=== PATIENT | female | born 1970 | race Caucasian/White ===

== ENCOUNTER → 2019-04-27 13:58 | Outpatient (CLI) | payer OTHER, SELFPAY ==
--- NOTE | ~2019-04-27 | MM_ITS ---
EXAMINATION: MM screening [facility] BI w [place] HISTORY: Screening mammogram TECHNIQUE: Craniocaudal and mediolateral oblique 3-D tomosynthesis images were obtained and synthetic 2-D images were generated. CAD analysis was submitted and interpreted. COMPARISON: Comparison to multiple prior studies sequentially, with oldest reviewed study dated 10/01. BREAST PARENCHYMAL COMPOSITION: The breasts are almost entirely fatty. FINDINGS: There is no evidence of suspicious mass, calcification, or architectural distortion to sugg est malignancy in either breast. There has been no suspicious interval change. IMPRESSION: 1. No mammographic evidence of malignancy. 2. Recommend routine screening mammography in one year. BI-RADS Category 1: Negative Reviewed, dictated and finalized at location A.
== END ==
PROVIDERS: PCP Family Medicine; Visit Provider Nurse Practitioner
DX: Z12.31 Encounter for screening mammogram for malignant neoplasm of breast (principal)
CPT/HCPCS: 77063; 77067

== ENCOUNTER → 2020-06-12 15:49 | Outpatient (CLI) | payer OTHER, SELFPAY ==
--- NOTE | ~2020-06-12 | MM_ITS ---
EXAMINATION: MM screening [facility] [place] HISTORY: Screening TECHNIQUE: Craniocaudal and mediolateral oblique 3-D tomosynthesis images were obtained and synthetic 2-D images were generated. CAD analysis was submitted and interpreted. COMPARISON: Comparison to multiple prior studies sequentially, with oldest reviewed study dated 10/01. BREAST PARENCHYMAL COMPOSITION: Breast composed of scattered areas of fibroglandular density FINDINGS: There is no evidence of suspicious mass, calcification, or architectural distortion to sugg est malignancy in either breast. There has been no suspicious interval change. IMPRESSION: 1. No mammographic evidence of malignancy. 2. Recommend routine screening mammography in one year. BI-RADS Category 1: Negative Reviewed, dictated and finalized at location A.
== END ==
PROVIDERS: Visit Provider Nurse Practitioner
DX: Z12.31 Encounter for screening mammogram for malignant neoplasm of breast (principal)
CPT/HCPCS: 77063; 77067

== ENCOUNTER → 2021-06-17 11:20 | Outpatient (CLI) | payer OTHER, SELFPAY ==
--- NOTE | ~2021-06-17 | MM_ITS ---
EXAMINATION: MM screening [facility] [place] HISTORY: Screening TECHNIQUE: Craniocaudal and mediolateral oblique 3-D tomosynthesis images were obtained and synthetic 2-D images were generated. CAD analysis was submitted and interpreted. COMPARISON: Comparison to multiple prior studies sequentially, with oldest reviewed study dated 12/08. BREAST PARENCHYMAL COMPOSITION: There are scattered areas of fibroglandular density. FINDINGS: There is no evidence of suspicious mass, calcification, or architectural distortion to sugg est malignancy in either breast. There has been no suspicious interval change. IMPRESSION: 1. No mammographic evidence of malignancy. 2. Recommend routine screening mammography in one year. BI-RADS Category 1: Negative Reviewed, dictated and finalized at location A.
== END ==
PROVIDERS: PCP Family Medicine; Visit Provider Nurse Practitioner
DX: Z12.31 Encounter for screening mammogram for malignant neoplasm of breast (principal)
CPT/HCPCS: 77063; 77067

== ENCOUNTER → 2022-02-11 09:14 | Outpatient (CLI) | payer OTHER, SELFPAY ==
--- NOTE | ~2022-02-11 | MMUS_ITS ---
EXAMINATION: MM diagnostic [facility] BI w [place], US breast BI limited HISTORY: Bilateral nipple pain TECHNIQUE: Craniocaudal, mediolateral, and mediolateral oblique 3-D tomosynthesis images of the breas ts were performed and synthetic 2-D images were generated. CAD analysis was submitted and interpreted . High resolution limited bilateral breast ultrasound was performed. COMPARISON: 06/17/2021, 06/12/2020, 04/27/2019 BREAST PARENCHYMAL COMPOSITION: There are scattered areas of fibroglandular density. FINDINGS: MAMMOGRAPHIC FINDINGS: No suspicious mass, calcification, or architectural distortion are identified in either breast to sug gest malignancy. There has been no suspicious interval change. No mammographic correlate is identifie d for the patient's reported bilateral nipple pain. ULTRASOUND: Tardus subareolar ultrasound was performed of both breasts. No sonographic correlate is identified fo r the patient's reported nipple pain. IMPRESSION: 1. No specific mammographic or sonographic correlate is identified for the patient's reported nipple pain. Further evaluation at this time should be based on clinical assessment. Continued follow-up phy sical examination is recommended. 2. Recommend routine screening mammography in one year. BI-RADS Category 1: Negative Reviewed, dictated and finalized at location A. LY SALES STAFF IMPRESSION: 1. No specific mammographic or sonographic correlate is identified for the meggan ent's reported nipple pain. Further evaluation at this time should be based on clinical assessment. Continued follow-up physical examination is recommended. 2. Recommend routine screening mammography in one year. BI-RADS Category 1: Negative
== END ==
PROVIDERS: PCP Family Medicine; Visit Provider Nurse Practitioner
DX: N64.4 Mastodynia (principal)
CPT/HCPCS: 76642; 77062; 77066; G0279

== ENCOUNTER 2023-06-20 14:09 | Outpatient (CLI) | payer OTHER, SELFPAY ==
--- NOTE | ~2023-06-20 | MM_ITS ---
EXAMINATION: MM screening [facility] [place] HISTORY: Screening mammogram TECHNIQUE: Craniocaudal and mediolateral oblique 3-D tomosynthesis images were obtained and synthetic 2-D images were generated. CAD analysis was submitted and interpreted. COMPARISON: 02/11/2022 diagnostic bilateral mammogram and limited bilateral breast ultrasound examinati on 06/17/2021 bilateral screening mammogram BREAST PARENCHYMAL COMPOSITION: The breasts are almost entirely fatty. FINDINGS: There is no evidence of suspicious mass, calcification, or architectural distortion to sugg est malignancy in either breast. There has been no suspicious interval change. IMPRESSION: 1. No mammographic evidence of malignancy. 2. Recommend routine screening mammography in one year. BI-RADS Category 1: Negative Reviewed, dictated and finalized at location A.
== END 2023-06-20 14:10 ==
LOC: MICIMG 14:11
PROVIDERS: PCP Family Medicine; Visit Provider Nurse Practitioner
DX: Z12.31 Encounter for screening mammogram for malignant neoplasm of breast (principal)
CPT/HCPCS: 77063; 77067

== ENCOUNTER 2024-06-29 11:55 | Outpatient (CLI) | payer OTHER, SELFPAY ==
--- NOTE | ~2024-06-29 | MM_ITS ---
EXAMINATION: MM screening [facility] w [facility] HISTORY: Screening TECHNIQUE: Craniocaudal and mediolateral oblique 3-D tomosynthesis images were obtained and synthetic 2-D images were generated. CAD analysis was submitted and interpreted. COMPARISON: Comparison to multiple prior studies sequentially, with oldest reviewed study dated 03/03. BREAST PARENCHYMAL COMPOSITION: Not Dense: The breasts are almost entirely fatty. FINDINGS: There is no evidence of suspicious mass, calcification, or architectural distortion to sugg est malignancy in either breast. There has been no suspicious interval change. IMPRESSION: 1. No mammographic evidence of malignancy. 2. Recommend routine screening mammography in one year. BI-RADS Category 1: Negative Reviewed, dictated and finalized at location B.
--- OUTSIDE RECORDS SUMMARY | 2024-06-29 11:58 | XMS_ITS | Encounter Summary ---
Author Organization [facility] Facility Care Team Providers Care Chicken And Fish Cleaner Name Role Phone Unknown, Notinfile Primary Care Provider Unavail able Curtis Rhodes MD Primary Care Provider [phone] Solo Barrett MD Primary Care Provider [phone] Nancy Lipscomb MD Unavailable [phone] Encounter Details Date Type Department Care Team (Latest Contact Info) Description 02/22/2017 Orders Only [facility] CLINCONV ProviderSaeid MD [address] [place] [id number] Social History Tobacco Use Types Packs/Day Years Used Date Smoking Tobacco: Never Assessed Comments Unknown Sex and Gender Information Value Date Recorded Sex Assigned at Not on file Legal Sex Female 3:01 AM PLANNING OFFICIAL Gender Identity Not on file Sexual Orientation Not on file documented as of this encounter Plan of Treatment Not on file documented as of this encounter Procedures Procedure Name Priority Date/Time Associated Diagnosis Comments CARDIOLOGY REPORT 02/22/2017 12: 00 AM PLANNING OFFICIAL documented in this encounter Results * CARDIOLOGY REPORT (02/22/2017 12:00 AM PLANNING OFFICIAL) Anatomical Region Laterality Modality Other Narrative 02/22/2017 12:00 AM PLANNING OFFICIAL Ordered by an unspecified provider. Historical Provider [facility] SCOTT MAR[facility] Final Result documented in this encounter Visit Diagnoses Not on filedocumented in this encounter Additional Health Concerns Infection Onset Date Last Indicated Resolved Time COVID: Suspected 03/01/2023 03/01/2023 03/01/2023 10:28 AM PLANNING OFFICIAL COVID: Suspected 03/01/2023 03/01/2023 03/01/2023 8:00 PM PLANNING OFFICIAL RSV, droplet 03/01/2023 03/01/2023 03/08/2023 3:05 AM PLANNING OFFICIAL COVID: Suspected 06/12/2024 06/12/2024 06/12/2024 10:14 AM CDT documented as of this encounter Care Teams Chicken And Fish Cleaner Relationship Specialty Start Date End Date Unknown, Notinfile PCP - General 04/18/17 04/28/17 Curtis Rhodes MD [address] [place] [address] PCP - General 04/29/17 07/26/18 Solo Barrett MD [address] [place] [address] PCP - General Family Medicine 07/27/18 Nancy Lipscomb MD [address] [place] [address] Critical Care Unit Manager Interventional Cardiology 09/20/18 documented as of this encounter
--- OUTSIDE RECORDS SUMMARY | 2024-06-29 11:58 | XMS_ITS | Encounter Summary ---
Author Organization [facility] Address [address] [place] [address] Care Team Providers Care Insurance Verify Rep Name Role Phone Solo Barrett MD Primary Care Provider [phone] Encounter Details Date Type Department Care Team (Late st Contact Info) Description 01/16/2008 Outpatient Historical [facility] Charisma Villalobos MD [address] [id number] Other Screening Mammogram Social History Tobacco Use Types Packs/Day Years Used Date Smoking Tobacco: Never Assessed Comments Unknown Sex and Gender Information Value Date Recorded Sex Assigned at Not on file Legal Sex Female 5:40 AM TECHNOLOGY CONSULTANT Gender Identity Not on file Sexual Orientation Not on file documented as of this encounter Plan of Treatment Not on file documented as of this encounter Procedures Procedure Name Priority Date/Time Associated Diagnosis Comments MAMMO SCREENING BILAT Routine 01/16/2008 3:08 PM TECHNOLOGY CONSULTANT documented in this encounter Results * MAMMO SCREENING BILAT (01/16/2008 3:08 PM TECHNOLOGY CONSULTANT) Anatomical Region Laterality Modality Breast Bilateral Other 01/16/2008 3:08 PM TECHNOLOGY CONSULTANT Narrative 01/19/2008 7:08 PM TECHNOLOGY CONSULTANT [facility] [address] [place], [place] [address] Admit Date: 01/16/2008 MERCEDES BRO Sex: F Admit Prov: CHARISMA GAN Date: 1970 Primary Care Prov: PCP, UNKNOWN CMRN: [id number] [id number] Ordering Prov: DOCTORCHRISTIANO O Accession Number: [id number] Interpretation BILATERAL SCREENING MAMMOGRAMS, 01/16/2008 Reason For Examination: Routine screening study. Findings: The parenchyma is moderately dense bilaterally. There is no mass, malignant calcification, lymphadenopathy or other sign of malignancy. Summary: No mammographic evidence of malignancy. BI-RADS Category: 1, negative. Assessment BIRADS: 1-Negative Recommendation: Normal interval follow-up Dictated by: SHAHID RIOJAS Electronically signed by: SHAHID RIOJAS 01/19/2008 19:08 Transcribed: 01/19/2008 14:26 DKT Procedure Note Shahid Riojas MD - 01/19/[address] [address] Admit Date: 01/16/2008 MERCEDES BRO Sex: F Admit Prov: [id number] CHARISMA ALFARO Date:1970 Primary Care Prov: PCP, UNKNOWN CMRN: [id number] [id number] [facility] Ordering Prov: CHRISTIANO MARIE Interpretation BILATERAL SCREENING MAMMOGRAMS, 01/16/2008 Reason For Examination: Routine screening study. Findings: The parenchyma is moderately dense bilaterally. There is nomass, malignant calcification, lymphadenopathy or other sign ofmalignancy. Summary: No mammographic evidence of malignancy. BI-RADS Category: 1, negative. Assessment BIRADS: 1-Negative Recommendation: Normal interval follow-up Dictated by: SHAHID RIOJAS Electronically signed by: SHAHID RIOJAS 01/19/2008 19:08 Transcribed: 01/19/2008 14:26 DKT us History Conversion MAMMO ORDERABLES Final Result documented in this encounter Visit Diagnoses Diagnosis Other screening mammogram documented in this encounter Care Teams Insurance Verify Rep Relationship Specialty Start Date End Date Solo Barrett MD PCP - General Family Practice 03/17/12 documented as of this encounter
--- OUTSIDE RECORDS SUMMARY | 2024-06-29 11:58 | XMS_ITS | Referral Summary ---
Author Organization [facility] Address [address] [place] [address] Care Team Providers Care Veneer Joiner Name Role Phone Solo Barrett MD Primary Care Provider Nancy Lipscomb MD Unavailable Encounters Date Type Department Care Team Description 06/20/2024 8:00 AM CDT Office Visit [facility] Family Medicine at [address] [place] [phone] Lizbeth Fay NP Class 3 severe obesity due to excess calories with serious comorbidity and body mass index (BMI) of 40.0 to 44.9 in adult (Primary Dx) 06/12/2024 9:45 AM CDT Office Visit [facility] at [address] [place] [address] Betty Perez PA Cough, unspecified type (Primary Dx); Breast cancer screening by mammogram 05/22/2024 Telephone [facility] at [address] [place] [address] Solo Barrett MD 05/17/2024 10:15 AM CDT Office Visit [facility] at [address] [phone] Betty Perez PA Encounter for weight management (Primary Dx); Morbid obesity with BMI of 40.0-44.9, adult (HCC) 05/16/2024 Results Follow-Up [facility] at [address] [phone] Betty Perez PA Lipid panel 05/16/2024 6:05 AM CDT Lab [facility] [address] [place] [phone] Blood tests for routine general physical examination 05/15/2024 Orders Only [facility] at [address] [phone] Solo Barrett MD Blood tests for routine general physical examination (Primary Dx) 05/10/2024 Results Follow-Up [facility] at [address] [phone] Betty Perez PA CBC with auto differential, Comprehensive metabolic panel, TSH, Additional followed-up results: 2 05/10/2024 6:15 AM CDT Lab [facility] [address] [place] [phone] Routine general medical examination at a health care facility; Screening for metabolic disorder 05/07/2024 Telephone [facility] at [address] [phone] Solo Barrett MD Additional Services Or Orders 05/07/2024 9:00 AM CDT Office Visit [facility] [address] [place] [phone] Lana Olea NP BMI 40.0-44.9, adult (HCC) (Primary Dx); JILLIAN (obstructive sleep apnea); Other hyperlipidemia; Essential hypertension from Last 3 Months Allergies No known active allergies Medications pantoprazole DR (PROTONIX) 40 mg EC tablet Take 1 tablet (40 mg total) by mouth 2 (two) times a day 3 06/04/2018 Active multivit with minerals/lutein (MULTIVITAMIN 50 PLUS ORAL) daily Active potassium chloride ER (KLOR-CON) 10 mEq CR tabletIndication s:Essential hypertension,Hyp okalemia Take 1 tablet/capsu le (10 mEq total) by mouth daily 90 tablet/capsul e 3 08/02/2023 08/02/19 25 Active rosuvastatin (CRESTOR) 10 mg tabletIndication s:Dyslipidemia TAKE 1 TABLET BY MOUTH EVERY DAY 90 tablet 1 10/06/2023 Active spironolactone-h ydroCHLOROthiazi de (ALDACTAZIDE) 25-25 mg per tabletIndication s:Essential hypertension,Dys lipidemia TAKE 1 AND 1/2 TABLETS BY MOUTH DAILY 135 tablet 04/30/2024 Active COQ10, UBIQUINOL, ORAL Take 1 capsule by mouth daily Active tirzepatide, weight loss, (Zepbound) 2.5 mg/0.5 mL pen injectorIndicati ons:Encounter for weight management,Morbi d obesity with BMI of 40.0-44.9, adult ([facility]) Inject 0.5 mL (2.5 mg total) under the skin every 7 days 2 mL 1 05/17/2024 Active guaiFENesin-code ine (GUAITUSS AC) liquid 100-10 mg/5 mLIndications:Co ugh, unspecified type Take 5-10 mL by mouth every 4 (four) hours as needed for cough 120 mL 06/12/2024 07/13/19 25 Active Active Problems Problem Noted Date Diagnosed Date Other hyperlipidemia 05/07/2024 Nonsmoker 04/06/2023 Class 3 severe obesity due t o excess calories with serious comorbidity and body mass index (BMI) of 40.0 to 44.9 in adult 04/28/2022 Assessment & Plan (06/20/2024 8:24 AM CDT): Not at goal, improving Obesity managed with Semaglutide 2.5 mg. No nausea or vomiting. Effective weight loss. No hunger, reduced portion sizes. Insurance may require dose increase for coverage. - Continue Semaglutide 2.5 mg as tolerated. - Increase fiber intake for constipation. - Consider dose increase if weight loss plateaus and insurance requires. - Encourage dietary modifications to increase protein intake to over 100 grams per day. - Recommend resistance training using home equipment and online resources. - Schedule follow-up in 3 months for annual visit and medication review. JILLIAN (obstructive sleep apnea) 04/28/2022 Psychophysiological insomnia 04/28/2022 Gastroesophageal reflux disease with esophagitis 03/01/2017 Resolved Problems Problem Noted Date Diagnosed Date Resolved Date Upper respiratory tract infection 03/01/2023 05/17/2024 Assessment & Plan (03/01/2023 10:23 AM INTERNAL MEDICINE DOCTOR): Likely viral PCR and throat culture pending Vital signs stable, no respiratory distress, nontoxic appearance, lungs CTAB on exam, 97% on RA Supportive care, rest, clear sugar-free fluids (water), steam inhalation/humidifier Warm salt water gargles OTC medications (Flonase, Nasal saline, Zyrtec/Claritin, Tylenol, Mucinex/Delsym per package instructions) BMI 39.0-39.9,adult 10/06/2022 05/18/19 25 Hypersomnia 04/28/2022 05/17/2024 Morbid (severe) obesity due to excess calories 04/08/2022 09/28/2022 Left wrist pain 01/20/2022 09/29/2022 Acute pain of right shoulder 12/25/2018 09/23/2020 Immunizations Immunization Administration Dates Next Due Influenza, Quadrivalent, Alyssa l Culture-based MDCK, Preservative Free, Antibiotic Free, Intramuscular 11/27/2022,10/30/2021,10/24/2019 Influenza, Quadrivalent, Spl it, Preservative Free, Intramuscular 11/23/2020 Influenza, Trivalent, Preser vative Free, Intramuscular 12/02/2023 Influenza, Unspecified 11/07/2021,11/07/2020 Pfizer SARS-CoV-2 Monovalent Vaccination (12+ Yrs) PURPLE 12/14/2023,04/29/2020,04/07/2020 Tdap 05/23/2018 ZOSTER Recombinant 03/28/2022,01/15/2022 Social History Tobacco Use Types Packs/Day Years Used Date Smoking Tobacco: Never Smokeless Tobacco: Never Tobacco Cessation:Counseling Given: Not Answered Alcohol Use Standard Drinks/Week Comments Yes 0 (1 standard drink = 0.6 oz pur e alcohol) AUDIT-C Answer Date Recorded Q1: How often do you have a drink containing alc ohol? 2-4 times a month 06/20/2024 Q2: How many drinks containi ng alcohol do you have on a typical day when you are drinking? 1 or 2 06/20/2024 Q3: How often do you have si x or more drinks on one occasion? 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 Not on file Not on file Last Filed Vital Signs Vital Sign Reading Time Taken Comments Blood Pressure 122/82 06/20/2024 7:56 AM CDT Pulse 72 06/20/2024 7:56 AM CDT Temperature 36.5 C (97.7 F) 06/20/2024 7:56 AM CDT Respiratory Rate 18 06/20/2024 7:56 AM CDT Oxygen Saturation 99% 06/20/2024 7:56 AM CDT Inhaled Oxygen Concentration - - Weight 103.5 kg (228 lb 1.6 oz) 06/20/2024 7:56 AM CDT Height 157.5 cm (5' 2 ) 06/20/2024 7:56 AM CDT Body Mass Index 41.72 06/20/2024 7:56 AM CDT Plan of Treatment Not on file Procedures Procedure Name Priority Date/Time Associated Diagnosis Comments POC INFLUENZA A/B, COVID-19 ANTIGEN Routine 06/12/2024 10:13 AM CDT Cough, unspecified type LIPID PANEL Routine 05/16/2024 6:11 AM CDT Blood tests for routine general physical examination EGFR Routine 05/10/2024 6:21 AM CDT Routine general medical examination at a health care facility DIFFERENTIAL AUTO Routine 05/10/2024 6:2 1 AM CDT Routine general medical examination at a health care facility TSH Routine 05/10/2024 6:21 AM CDT Screening for metabolic disorder COMPREHENSIVE METABOLIC PANEL Routine 05/10/2024 6:21 AM CDT Routine general medical examination at a health care facility CBC WITH AUTO DIFFERENTIAL Routine 05/10/2024 6:21 AM CDT Routine general medical examination at a health care facility SCREENING MAMMOGRAM BILATERAL W ALEXIS Schedule Routine, Read Routine (OP Routine) 06/20/2023 COLONOSCOPY Routine 12/18/2021 from Last 3 Months or Most Recently Relevant to Health Maintenance Results * POC Influenza A/B, COVID-19 antigen (06/12/2024 10:13 AM CDT) Influenza A Ag, POC Negative Negative [facility] Influenza B Ag, POC Negative Negative [facility] COVID-19 Ag POC Presumptive Negative Presumptive Negative, Invalid [facility] Nasal 06/12/2024 10:1 3 AM CDT Betty Gutierrez POINT OF CARE TEST ORDER KYLE Final Result [facility] [address] [facility] [address] [place], [place] [address] * Lipid panel (05/16/2024 6:11 AM CDT) Cholesterol 159 30 - 199 mg/dL Comment: Interpretive Data Ages < or = 19 years Acceptable: <170 mg/dL Borderline high: 170-199 mg/dL High: >or= 200 mg/dL Ages > or = 20 years Desirable: <200 mg/dL Borderline high: 200-239 mg/dL High: >or= 240 mg/dL Literature References: 1. Expert Panel on Integrated Guidelines for Cardiovascular Health and Risk Reduction in Children and Adolescents. Pediatrics 2011;128:S213 2. NCEP Expert Panel. Circulation 2004;110:227 Current Interpretive Data was last revised on 2017. Testing performed by: [address] [address] Triglycerides 60 <=149 mg/dL [facility] Comment: Interpretive Data Ages < or = 9 years Acceptable: <75 mg/dL Borderline high: 75-99 mg/dL High: >or= 100 mg/dL Ages 10 to 20 years Acceptable: <90 mg/dL Borderline high: 90-129 mg/dL High: >or= 130 mg/dL Ages > or = 20 years Desirable: <150 mg/dL Borderline high: 150-199 mg/dL High: 200-499 mg/dL Very high: >or= 499 mg/dL Literature References: 1. Expert Panel on Integrated Guidelines for Cardiovascular Health and Risk Reduction in Children and Adolescents. Pediatrics 2011;128:S213 2. NCEP Expert Panel. Circulation 2004;110:227 Current Interpretive Data was last revised on 2017. Testing performed by: [address] [address] HDL 62 >=40 mg/dL [facility] Comment: Interpretive Data Ages < or = 19 years Acceptable: >45 mg/dL Borderline low: 40-45 mg/dL Low: <40 mg/dL Ages > or = 20 years Desirable: >or= 60 mg/dL Low: <40 mg/dL Literature References: 1. Expert Panel on Integrated Guidelines for Cardiovascular Health and Risk Reduction in Children and Adolescents. Pediatrics 2011;128:S213 2. NCEP Expert Panel. Circulation 2004;110:227 Current Interpretive Data was last revised on 2017. Testing performed by: [address] [address] LDL, calculated 85 <=129 mg/dL [facility] Comment: Interpretive Data Ages < or = 19 years Acceptable: <110 mg/dL Borderline high: 110-129 mg/dL High: >or= 130 mg/dL Ages > or = 20 years Optimal: <100 mg/dL Near optimal: 100-129 mg/dL Borderline high: 130-159 mg/dL High: >160 mg/dL Calculated using the Isidro LDL-C estimating equation. This equation was implemented on 2023. Prior to this date LDL-C was estimated using the Friedewald equation. Literature References: 1. Expert Panel on Integrated Guidelines for Cardiovascular Health and Risk Reduction in Children and Adolescents. Pediatrics 2011;128:S213 2. NCEP Expert Panel. Circulation 2004;110:227 3. Dwaine Tadeo et al. NATHALIA Cardiol. 2020 June 07;5(5):540-548. doi: 10.1001/jamacardio.2020.0013 Current Interpretive Data was last revised on 2023. Testing performed by: [address] [address] Non-HDL Cholesterol 97 mg/dL [facility] PHAM Comment: Interpretive Data Ages < or = 19 years Acceptable: <120 mg/dL Borderline high: 120-144 mg/dL High: >145 mg/dL Ages > or = 20 years When triglycerides are >200 mg/dL, Non-HDL cholesterol is a secondary target of therapy with treatment goals that are 30 mg/dL greater than the LDL cholesterol target. Literature References: 1. Expert Panel on Integrated Guidelines for Cardiovascular Health and Risk Reduction in Children and Adolescents. Pediatrics 2011;128:S213 2. NCEP Expert Panel. Circulation 2004;110:227 Current Interpretive Data was last revised on 2017. Testing performed by: [address] [address] Chol/HDL ratio 3 CHEY Comment:Testing performed by : [address] [address] Blood 05/16/2024 6:11 AM CDT 05/16/2024 7:27 AM CDT us Solo Barrett MD LAB BLOOD ORDERABLES Final Re sult [facility] [address] [facility] Department [place] [address] * eGFR (05/10/2024 6:21 AM CDT) eGFR >90 >=60 mL/min/1. 73 m2 Comment: Interpretive Data Reference Interval Normal >/= 90 mL/min/1.73m2 Mildly decreased* 60 - 89 mL/min/1.73m2 Mildly to moderately decreased 45 - 59 mL/min/1.73m2 Moderately to severely decreased 30 - 44 mL/min/1.73m2 Severely decreased 15 - 29 mL/min/1.73m2 Kidney Failure < 15 mL/min/1.73m2 *Relative to young adult level Estimated glomerular filtration rate is determined by the 2020 CKD-EPI equation recommended by the National Kidney Foundation (A Unifying Approach to GFR Estimation: Recommendations of the NKF-ASK Task Force on Reassessing the Inclusion of Race in Diagnosing Kidney Disease, JASN 2020). The CKD-EPI equation should not be used for patients with unstable renal function and has not been validated in children and those over 70. Current interpretive data was last reviewed 2020. Testing performed by: [address] [address] Blood 05/10/2024 6:21 AM CDT 05/10/2024 7:05 AM CDT us Solo Barrett MD LAB BLOOD ORDERABLES Final Re sult [facility] [address] [facility] Department [place] [address] * (ABNORMAL) Differential, auto (05/10/2024 6:21 AM CDT) Neutrophil abs 3.96 1.50 - 6.50 K/cumm Comment:Testing performed by : [address] [address] Imm gran abs 0.02 0.00 - 0.10 K/cumm CHEY Comment:Testing performed by : [address] [address] Lymphocyte abs 3.64(H) 0.80 - 3.30 K/cumm CHEY Comment:Testing performed by : [address] [address] Monocyte abs 0.62 0.20 - 0.80 K/cumm CHEY Comment:Testing performed by : [address] [place] [address] Eosinophil abs 0.36 0.00 - 0.50 K/cumm [facility] Comment:Testing performed by : [address] [address] Basophil abs 0.12(H) 0.00 - 0.10 K/cumm CHEY Comment:Testing performed by : [address] [address] Neutrophil pct 45.5 % [facility] Comment: Interpretive Data Percent cell count reference ranges are not reported, since discordance with absolute values may lead to misinterpretation of CBC data. Current Interpretive Data was last revised on 2017. Testing performed by: [address] [address] Imm gran pct 0.2 % [facility] Comment: Interpretive Data Percent cell count reference ranges are not reported, since discordance with absolute values may lead to misinterpretation of CBC data. Current Interpretive Data was last revised on 2017. Testing performed by: [address] [address] Lymphocyte pct 41.7 % [facility] Comment: Interpretive Data Percent cell count reference ranges are not reported, since discordance with absolute values may lead to misinterpretation of CBC data. Current Interpretive Data was last revised on 2017. Testing performed by: [address] [address] Monocyte pct 7.1 % [facility] Comment: Interpretive Data Percent cell count reference ranges are not reported, since discordance with absolute values may lead to misinterpretation of CBC data. Current Interpretive Data was last revised on 2017. Testing performed by: [address] [address] Eosinophil pct 4.1 % [facility] Comment: Interpretive Data Percent cell count reference ranges are not reported, since discordance with absolute values may lead to misinterpretation of CBC data. Current Interpretive Data was last revised on 2017. Testing performed by: [address] [address] Basophil pct 1.4 % [facility] Comment: Interpretive Data Percent cell count reference ranges are not reported, since discordance with absolute values may lead to misinterpretation of CBC data. Current Interpretive Data was last revised on 2017. Testing performed by: [address] [address] Blood 05/10/2024 6:21 AM CDT 05/10/2024 7:05 AM CDT Solo Barrett MD LAB BLOOD ORDERABLES Final Re sult [facility] [address] [facility] Department [place] [address] * CBC with auto differential (05/10/2024 6:21 AM CDT) WBC 8.72 3.80 - 9.90 K/cumm Comment:Testing performed by : [address] [address] Hgb 14.5 11.9 - 15.5 g/dL CHEY Comment:Testing performed by : [address] [address] Hct 43.2 35.6 - 45.5 % CHEY Comment:Testing performed by : [address] [address] Plt 351 150 - 400 K/cumm CHEY Comment:Testing performed by : [address] [address] MPV 10.7 9.1 - 12.3 fL [facility] Comment:Testing performed by : [address] [address] RBC 4.98 3.90 - 5.20 M/cumm CHEY Comment:Testing performed by : [address] [address] MCV 86.7 81.3 - 96.4 fL CHEY Comment:Testing performed by : [address] [address] MCH 29.1 27.1 - 33.3 pg [facility] Comment:Testing performed by : [address] [address] MCHC 33.6 32.3 - 35.7 g/dL [facility] PHAM Comment:Testing performed by : [address], [address] RDW CV 13.4 11.1 - 14.9 % [facility] PHAM Comment:Testing performed by : [address], [address] RDW SD 42.3 35.7 - 48.1 fL [facility] PHAM Comment:Testing performed by : [address] [address] NRBC abs 0.00 0.00 - 0.01 K/cumm CHEY Comment:Testing performed by : [address], [address] Blood 05/10/2024 6:21 AM CDT 05/10/2024 7:05 AM CDT us Solo Barrett MD LAB BLOOD ORDERABLES Final Re sult Performing Organization Address City/[facility] Co de Phone Number JAK[address] [employer] [address] * TSH (05/10/2024 6:21 AM CDT) Thyroid Stimulating Hormone 2.75 0.30 - 4.20 mcIUnit/mL Comment:Testing performed by : [address] [address] Blood 05/10/2024 6:21 AM CDT 05/10/2024 7:05 AM CDT Solo Barrett MD LAB BLOOD ORDERABLES Final Re sult JAK[address] [place] [address] * Comprehensive metabolic panel (05/10/2024 6:21 AM CDT) Sodium 140 135 - 145 mmol/L Comment:Testing performed by : [address] [address] Potassium, pl 3.3 3.3 - 4.9 mmol/L CHEY Comment:Testing performed by : [address] [address] Chloride 100 97 - 110 mmol/L [facility] Comment:Testing performed by : [address], [place]., [address] CO2 27 22 - 32 mmol/L [facility] Comment:Testing performed by : [address], [place]., [address] Anion gap 13 2 - 15 mmol/L [facility] Comment:Testing performed by : [address] [address] BUN 19 6 - 25 mg/dL [facility] Comment:Testing performed by : [address], [place]., [address] Creatinine 0.60 0.60 - 1.10 mg/dL [facility] Comment:Testing performed by : [address] [address] Glucose 95 70 - 199 mg/dL [facility] Comment: Interpretive Data Fasting glucose >/= 126 mg/dl is diagnostic for diabetes. Fasting is defined as no caloric intake for at least 8 hours. Fasting glucose between 100 mg/dl to 125 mg/dl is diagnostic of prediabetes. In a patient with classic symptoms of hyperglycemia or hyperglycemic crisis, a random glucose >/= 200 mg/dl is diagnostic for diabetes. In the absence of unequivocal hyperglycemia, results should be confirmed by repeat testing. The classification and Diagnosis of Diabetes Diabetes Care 202; 46: S19-S40. Current interpretive data was last revised 2022. Testing performed by: [address] [address] Calcium 9.8 8.5 - 10.3 mg/dL [facility] Comment:Testing performed by : [address] [address] Bilirubin, total 0.4 0.1 - 1.2 mg/dL [facility] Comment:Testing performed by : [address], [place]., [address] Protein, pl 7.3 6.5 - 8.5 g/dL [facility] Comment:Testing performed by : [facility], [address] [place] [address]., [address] Albumin 4.0 3.5 - 5.0 g/dL [facility] Comment:Testing performed by : [address] [address] Alk phos 101 40 - 130 Units/L [facility] Comment:Testing performed by : [address], [address] ALT 25 7 - 45 Units/L [facility] Comment:Testing performed by : [address] [address] AST 19 10 - 45 Units/L [facility] Comment:Testing performed by : [address] [address] Blood 05/10/2024 6:21 AM CDT 05/10/2024 7:05 AM CDT Solo Barrett MD LAB BLOOD ORDERABLES Final Re sult [facility] Department [place] [address] * Screening Mammogram Bilateral W Alexis (06/20/2023) Anatomical Region Laterality Modality Breast Bilateral Mammography Historical Provider IMG MAMMO PROCEDURES Junie l Result * Colonoscopy (12/18/2021) Anatomical Region Laterality Modality Other Historical Provider ENDOSCOPY PROCEDURES Junie l Result from Last 3 Months or Most Recently Relevant to Health Maintenance Insurance [facility] Care Teams Veneer Joiner Relationship Specialty Start Date End Date Solo Barrett MD PCP - General Family Medicine 07/27/18 Nancy Lipscomb MD Speech Therapist Technician Interventional Cardiology 09/20/18
--- OUTSIDE RECORDS SUMMARY | 2024-06-29 11:58 | XMS_ITS | Encounter Summary ---
Author Organization [facility] Address [address] [place] [address] Care Team Providers Care Press Officer Name Role Phone Solo Barrett MD Primary Care Provider [phone] Nancy Lipscomb MD Unavailable Encounter Details Date Type Department Care Team (Late st Contact Info) Description 05/16/2024 Results Follow-Up [facility] Family Medicine at [address] [phone] Betty Perez, [address] [address] Lipid panel Social History Tobacco Use Types Packs/Day Years Used Date Smoking Tobacco: Never Smokeless Tobacco: Never Alcohol Use Standard Drinks/Week Comments Yes 0 (1 standard drink = 0.6 oz pur e alcohol) AUDIT-C Answer Date Recorded Q1: How often do you have a drink containing alc ohol? 2-4 times a month 09/23/2020 Q2: How many drinks containi ng alcohol do you have on a typical day when you are drinking? 1 or 2 09/23/2020 Q3: How often do you have si x or more drinks on one occasion? 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
--- OUTSIDE RECORDS SUMMARY | 2024-06-29 11:58 | XMS_ITS | Encounter Summary ---
Author Organization [facility] Healthcare Address [address] [place] [address] Care Team Providers Care Meat Apprentice Name Role Phone Solo Barrett MD Primary Care Provider [phone] Nancy Lipscomb MD Unavailable Encounter Details Date Type Department Care Team (Late st Contact Info) Description 05/10/2024 Results Follow-Up [facility] Family Medicine at [address] [address] Betty Perez, [address] [address] CBC with auto differential, Comprehensive metabolic panel, TSH, Additional followed-up results: 2 Social History Tobacco Use Types Packs/Day Years [...] points, staff should administer the PHQ-9) 0 09/29/2022 Comments Unknown Sex and Gender Information Value Date Recorded Sex Assigned at Not on file 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 Yes-Action Needed documented in this encounter Plan of Treatment Not on file documented as of this encounter Visit Diagnoses Not on filedocumented in this encounter Additional Health Concerns Infection Onset Date Last Indicated Resolved Time COVID: Suspected 06/12/2024 06/12/2024 06/12/2024 10:14 AM CDT documented as of this encounter Care Teams Meat Apprentice Relationship Specialty Start Date End Date Solo Barrett MD PCP - General Family Medicine 07/27/18 Nancy Lipscomb MD Ordained Minister Interventional Cardiology 09/20/18 documented as of this encounter
--- OUTSIDE RECORDS SUMMARY | 2024-06-29 11:58 | XMS_ITS | Encounter Summary ---
Author Organization [facility] Facility Care Team Providers Care Die Cutter Name Role Phone Unknown, Notinfile Primary Care Provider Unavail able Curtis Rhodes MD Primary Care Provider + [phone] Solo Barrett MD Primary Care Provider [phone] Nancy Lipscomb MD Unavailable [phone] Encounter Details Date Type Department Care Team (Latest Contact Info) Description 07/19/2015 Orders Only [facility] CLINCONV ProviderSaeid MD [address] [place] [address] Social History Tobacco Use Types Packs/Day Years Used Date Smoking Tobacco: Never Assessed Comments Unknown Sex and Gender Information Value Date Recorded Sex Assigned at Not on file Legal Sex Female 3:01 AM CRUSHER AND BLENDER 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 Historical Provider MD Final Res ult documented in this encounter Visit Diagnoses Not on filedocumented in this encounter Additional Health Concerns Infection Onset Date Last Indicated Resolved Time COVID: Suspected 03/01/2023 03/01/2023 03/01/2023 10:28 AM CRUSHER AND BLENDER OPERATOR COVID: Suspected 03/01/2023 03/01/2023 03/01/2023 8:00 PM CRUSHER AND BLENDER OPERATOR RSV, droplet 03/01/2023 03/01/2023 03/08/2023 3:05 AM CRUSHER AND BLENDER OPERATOR COVID: Suspected 06/12/2024 06/12/2024 06/12/2024 10:14 AM CDT documented as of this encounter Care Teams Die Cutter Relationship Specialty Start Date End Date Unknown, Notinfile PCP - General 04/18/17 04/28/17 Curtis Rhodes MD [address] [place] [address] PCP - General 04/29/17 07/26/18 Solo Barrett MD [address] [place] [address] PCP - General Family Medicine 07/27/18 Nancy Lipscomb MD [address] [place] [address] Authorization Specialist Interventional Cardiology 09/20/18 documented as of this encounter
--- OUTSIDE RECORDS SUMMARY | 2024-06-29 11:58 | XMS_ITS | Clinical Summary ---
Author Organization [facility] Care Team Providers Care Health Communications Specialist Name Role Phone Unavailable Primary Care Provider Unavailabl e Social History Tobacco Use Types Packs/Day Years Used Date Smoking Tobacco: Never Assessed Comments Unknown Sex and Gender Information Value Date Recorded Sex Assigned at Not on file Legal Sex Female 8:23 AM CDT Gender Identity Not on file Sexual Orientation Not on file Plan of Treatment Health Maintenance Due Date Last Done Comments Hepatitis C Virus (HCV) Screening 1970 Hepatitis B Immunization (1 of 3 - 19+ 3-dose series) 01/01/1991 Colonoscopy 01/01/2017 Colorectal Cancer Screening 01/01/2017 Cologuard 01/01/2022 Immunochemical Fecal Occult Blood 01/01/2022 Pneumococcal Immunization (5 0+ years) (1 of 1 - PCV) 01/01/2022 Zoster Immunization (1 of 2) 01/01/2022 SARS-COV-2 Immunization (3 - 2023- season) 2023 04/29/2020, 04/07/2020 Influenza Immunization (Seas on Ended) 2024 10/24/2019 Respiratory Syncytial Virus (RSV) Immunization (Adult) (1 - 1-dose 75+ series) 01/01/2047 DTaP/Tdap/Td Immunization Discontinued 05/23/2018 TdaP Immunization Completed 05/23/2018 Human Papillomavirus (HPV) Immunization Aged Out No longer eligible based on patient's age to complete this topic Meningococcal Immunization (ACWY) Aged Out No longer eligible based on patient's age to complete this topic Rotavirus Immunization Aged Out No lo nger eligible based on patient's age to complete this topic
--- OUTSIDE RECORDS SUMMARY | 2024-06-29 11:58 | XMS_ITS | Encounter Summary ---
Author Organization [facility] Facility Care Team Providers Care Bag End Sewer Name Role Phone Unknown, Notinfile Primary Care Provider Unavail able Crutis Rhodes MD Primary Care Provider [phone] Solo Barrett MD Primary Care Provider Nancy Lipscomb MD Unavailable [phone] Encounter Details Date Type Department Care Team (Latest Contact Info) Description 03/07/2017 Orders Only [facility] CLINCONV ProviderSaeid MD [address] [place] [address] Social History Tobacco Use Types Packs/Day Years Used Date Smoking Tobacco: Never Assessed Comments Unknown Sex and Gender Information Value Date Recorded Sex Assigned at Not on file Legal Sex Female 3:01 AM ORNAMENT STITCHER Gender Identity Not on file Sexual Orientation Not on file documented as of this encounter Plan of Treatment Not on file documented as of this encounter Procedures Procedure Name Priority Date/Time Associated Diagnosis Comments CARDIOLOGY REPORT 03/07/2017 12: 00 AM ORNAMENT STITCHER documented in this encounter Results * CARDIOLOGY REPORT (03/07/2017 12:00 AM ORNAMENT STITCHER) Anatomical Region Laterality Modality Other Narrative 03/07/2017 12:00 AM ORNAMENT STITCHER Ordered by an unspecified provider. Historical Provider [facility] Final Result documented in this encounter Visit Diagnoses Not on filedocumented in this encounter Additional Health Concerns Infection Onset Date Last Indicated Resolved Time COVID: Suspected 03/01/2023 03/01/2023 03/01/2023 10:28 AM ORNAMENT STITCHER COVID: Suspected 03/01/2023 03/01/2023 03/01/2023 8:00 PM ORNAMENT STITCHER RSV, droplet 03/01/2023 03/01/2023 03/08/2023 3:05 AM ORNAMENT STITCHER COVID: Suspected 06/12/2024 06/12/2024 06/12/2024 10:14 AM CDT documented as of this encounter Care Teams Bag End Sewer Relationship Specialty Start Date End Date Unknown, Notinfile PCP - General 04/18/17 04/28/17 Curtis Rhodes MD [address] [place] [address] PCP - General 04/29/17 07/26/18 Solo Barrett MD [address] [place] [address] PCP - General Family Medicine 07/27/18 Nancy Lipscomb MD [address] [place] [address] Mechanical Integrity Engineer Interventional Cardiology 09/20/18 documented as of this encounter
--- OUTSIDE RECORDS SUMMARY | 2024-06-29 11:58 | XMS_ITS | Clinical Summary ---
Author Organization [facility] Address [address] [place] [address] Care Team Providers Care Putty Remover Name Role Phone Solo Barrett MD Primary Care Provider [phone] Nancy Lipscomb MD Unavailable Allergies No known active allergies Medications pantoprazole [...] d obesity with BMI of 40.0-44.9, adult (HCC) Inject 0.5 mL (2.5 mg total) under [...] 05/17/2024 Assessment & Plan (03/01/2023 10:23 AM FLATBED DRIVER): Likely viral PCR and throat culture pending [...] Acute pain of right shoulder 12/25/2018 09/23/2020 Encounters Date Type Department Care Team Description 06/20/2024 8:00 AM CDT Office Visit [facility] Family Medicine at [address] [address] Lizbeth Fay NP Class 3 severe obesity due to excess calories with serious comorbidity and body mass index (BMI) of 40.0 to 44.9 in adult (Primary Dx) 06/12/2024 9:45 AM CDT Office Visit [facility] Family Medicine at [address] [address] Betty Perez PA Cough, unspecified type (Primary Dx); Breast cancer screening by mammogram 05/22/2024 Telephone [facility] Family Medicine at [address] [address] Solo Barrett MD 05/17/2024 10:15 AM CDT Office Visit [facility] Family Medicine at [address] [address] Betty Perez PA Encounter for weight management (Primary Dx); Morbid obesity with BMI of 40.0-44.9, adult (HCC) 05/16/2024 6:05 AM CDT Lab [facility] [address] [place] [address] Blood tests for routine general physical examination 05/16/2024 Results Follow-Up [facility] Family Medicine at [address] [address] Betty Perez PA Lipid panel 05/15/2024 Orders Only [facility] Family Medicine at [address] [place] [phone] Solo Barrett MD Blood tests for routine general physical examination (Primary Dx) 05/10/2024 6:15 AM CDT Lab [facility] [address] [place] [address] Routine general medical examination at a health care facility; Screening for metabolic disorder 05/10/2024 Results Follow-Up [facility] Family Medicine at [address] [place] [address] Betty Perez PA CBC with auto differential, Comprehensive metabolic panel, TSH, Additional followed-up results: 2 05/07/2024 9:00 AM CDT Office Visit [facility] Cardiology [address] [place] [address] [address] [place] [address] Lana Olea, VICTORIANO BMI 40.0-44.9, adult (HCC) (Primary Dx); JILLIAN (obstructive sleep apnea); Other hyperlipidemia; Essential hypertension 05/07/2024 Telephone [facility] Family Medicine at [address] [place] [address] Solo Barrett MD Additional Services Or Orders from Last 3 Months Immunizations Immunization Administration Dates Next Due Influenza, Quadrivalent, Alyssa l Culture-based MDCK, Preservative Free, Antibiotic Free, Intramuscular 11/27/2022,10/30/2021,10/24/2019 Influenza, Quadrivalent, Spl it, Preservative Free, Intramuscular 11/23/2020 Influenza, Trivalent, Preser vative Free, Intramuscular 12/02/2023 Influenza, Unspecified 11/07/2021,11/07/2020 Pfizer SARS-CoV-2 Monovalent Vaccination (12+ Yrs) PURPLE 12/14/2023,04/29/2020,04/07/2020 Tdap 05/23/2018 ZOSTER Recombinant 03/28/2022,01/15/2022 Surgical History Surgery Date Site/Laterality Comments SECTION x1 OVARIAN CYST REMOVAL BILATERAL OOPHORECTOMY ANTERIOR CRUCIATE LIGAMENT REPAIR Right Medical History Medical History Date Comments Abnormal EKG Precordial chest pain Hypertension Hyperlipidemia GERD (gastroesophageal reflux disease) 2007 Family History Medical History Relation Name Comments Cancer Father Ashish Colon cancer Father Ashish Diabetes Maternal Grandfather Fran Heart disease Mother Linda Hypertension Mother Linad Relation Name Status Comments Father Ashish Maternal Grandfather Fran Mother Linda Social History Tobacco Use Types Packs/Day Years [...] on file Legal Sex Female 3:01 AM FLATBED DRIVER Gender Identity Not on file Sexual Orientation Not on file 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 Not on file Not on file Not on file Obstetrics History Last Filed Vital Signs Vital Sign Reading [...] 06/20/2024 7:56 AM CDT Plan of Treatment Health Maintenance Due Date Last Done Comments Cervical Cancer Screening 1970 Hepatitis C Screening 1970 Hepatitis B Screening 01/01/1990 Regular Well Visit/Exam 18-64 07/28/2019 07/27/2018 Breast Cancer Screening-Mammogram 06/19/2024 06/20/2023, 02/11/2022, 04/03/2012 Colon Cancer Screening-Colonoscopy 12/18/2024 12/18/2021 Depression Screening 06/12/2025 06/12/2024, 05/17/2024, 09/29/2022, Additional history exists DTaP/Tdap/Td Vaccine (2 - Td or Tdap) 05/23/2028 05/23/2018 Zoster Vaccine Completed 03/28/2022, 01/15/2022 Influenza Vaccine Completed 12/02/2023, , 11/07/2021, Additional history exists Covid-19 Vaccine Completed 12/14/2023, 07/2023, 12/18/2022, Additional history exists Pneumococcal vaccine <65 Aged Out No longer eligible based on patient's age to complete this topic Procedures Procedure Name Priority Date/Time Associated Diagnosis [...] CDT) Influenza A Ag, POC Negative Negative [facility] Influenza B Ag, POC Negative Negative [facility] COVID-19 Ag POC Presumptive Negative Presumptive Negative, Invalid [facility] [address] Nasal 06/12/2024 10:1 3 AM CDT us Betty Gutierrez POINT OF CARE TEST ORDER KYLE Final Result [facility] [address] [address] * Lipid panel (05/16/2024 6:11 AM CDT) [...] last revised on 2017. Testing performed by: [facility], [address] [place] [address]., [address] Triglycerides 60 <=149 mg/dL [facility] PHAM Comment: Interpretive Data Ages [...] last revised on 2017. Testing performed by: [address] [address] HDL 62 >=40 mg/dL [facility] Comment: Interpretive [...] last revised on 2017. Testing performed by: [address] [address] LDL, calculated 85 <=129 mg/dL [facility] Comment: Interpretive Data Ages < or = 19 years Acceptable: <110 mg/dL Borderline high: 110-129 mg/dL High: >or= 130 mg/dL Ages > or = 20 years Optimal: <100 mg/dL Near optimal: 100-129 mg/dL Borderline high: 130-159 mg/dL High: >160 mg/dL Calculated using the Dwaine LDL-C estimating equation. This equation was implemented on 2023. Prior to this date LDL-C was estimated using the Friedewald equation. Literature References: 1. Expert Panel on Integrated Guidelines for Cardiovascular Health and Risk Reduction in Children and Adolescents. Pediatrics 2011;128:S213 2. NCEP Expert Panel. Circulation 2004;110:227 3. Dwaine iSmmons al. NATHALIA Cardiol. 2020 June 07;5(5):540-548. doi: 10.1001/jamacardio.2020.0013 Current Interpretive Data was last revised on 2023. Testing performed by: [address] [address] Non-HDL Cholesterol 97 mg/dL [facility] Comment: Interpretive Data Ages < [...] last revised on 2017. Testing performed by: [facility], [address] [place] [address]., [address] Chol/HDL ratio 3 [facility] Comment:Testing performed by : [facility], [address] [place] [address]., [address] Blood 05/16/2024 6:11 AM CDT 05/16/2024 7:27 AM CDT Solo Barrett MD LAB BLOOD ORDERABLES Final Re sult [facility] [address] [facility] [place] [address] * eGFR (05/10/2024 6:21 AM [...] of Race in Diagnosing Kidney Disease, JASN 202). The CKD-EPI equation should not be used for patients with unstable renal function and has not been validated in children and those over 70. Current interpretive data was last reviewed 2020. Testing performed by: [address] [address] Blood 05/10/2024 6:21 AM CDT 05/10/2024 7:05 AM CDT us Solo Barrett MD LAB BLOOD ORDERABLES Final Re sult [facility] [address] [facility] [place] [address] * (ABNORMAL) Differential, auto (05/10/2024 6:21 AM CDT) Neutrophil abs 3.96 1.50 - 6.50 K/cumm Comment:Testing performed by : [address] [address] Imm gran abs 0.02 0.00 - 0.10 K/cumm CHEY Comment:Testing performed by : [address] [address] Lymphocyte abs 3.64(H) 0.80 - 3.30 K/cumm CHEY Comment:Testing performed by : [address] [address] Monocyte abs 0.62 0.20 - 0.80 K/cumm CHEY Comment:Testing performed by : [address] [address] Eosinophil abs 0.36 0.00 - 0.50 K/cumm CHEY Comment:Testing performed by : [address] [address] Basophil abs 0.12(H) 0.00 - 0.10 K/cumm [facility] Comment:Testing performed by : [address] [address] Neutrophil pct 45.5 % [facility] Comment: Interpretive Data Percent cell count reference ranges are not reported, since discordance with absolute values may lead to misinterpretation of CBC data. Current Interpretive Data was last revised on 2017. Testing performed by: [address] [address] Imm gran pct 0.2 % [facility] Comment: Interpretive Data Percent cell count reference ranges are not reported, since discordance with absolute values may lead to misinterpretation of CBC data. Current Interpretive Data was last revised on 2017. Testing performed by: [address] [address] Lymphocyte pct 41.7 % [facility] Comment: Interpretive Data Percent cell count reference ranges are not reported, since discordance with absolute values may lead to misinterpretation of CBC data. Current Interpretive Data was last revised on 2017. Testing performed by: [address] [address] Monocyte pct 7.1 % [facility] Comment: Interpretive Data Percent cell count reference ranges are not reported, since discordance with absolute values may lead to misinterpretation of CBC data. Current Interpretive Data was last revised on 2017. Testing performed by: [address] [address] Eosinophil pct 4.1 % [facility] Comment: Interpretive Data Percent cell count reference ranges are not reported, since discordance with absolute values may lead to misinterpretation of CBC data. Current Interpretive Data was last revised on 2017. Testing performed by: [address] [address] Basophil pct 1.4 % [facility] Comment: Interpretive Data Percent cell count reference ranges are not reported, since discordance with absolute values may lead to misinterpretation of CBC data. Current Interpretive Data was last revised on 2017. Testing performed by: [address] [address] Blood 05/10/2024 6:21 AM CDT 05/10/2024 7:05 AM CDT us Solo Barrett MD LAB BLOOD ORDERABLES Final Re sult [facility] [address] [facility] Department of Laboratories [place], [place] [id number] * CBC with auto differential (05/10/2024 6:21 AM CDT) [facility] WBC 8.72 3.80 - 9.90 K/cumm Comment:Testing performed by : [address] [address] Hgb 14.5 11.9 - 15.5 g/dL [facility] Comment:Testing performed by : [address] [address] Hct 43.2 35.6 - 45.5 % [facility] Comment:Testing performed by : [address] [address] Plt 351 150 - 400 K/cumm CHE[facility] Comment:Testing performed by : [address] [address] MPV 10.7 9.1 - 12.3 fL [facility] Comment:Testing performed by : [address], [address] RBC 4.98 3.90 - 5.20 M/cumm CHE[facility] Comment:Testing performed by : [address] [address] MCV 86.7 81.3 - 96.4 fL [facility] Comment:Testing performed by : [address], [address] MCH 29.1 27.1 - 33.3 pg [facility] Comment:Testing performed by : [address], [address] MCHC 33.6 32.3 - 35.7 g/dL [facility] Comment:Testing performed by : [address], [address] RDW CV 13.4 11.1 - 14.9 % [facility] Comment:Testing performed by : [address], [address] RDW SD 42.3 35.7 - 48.1 fL [facility] Comment:Testing performed by : [address], [address] NRBC abs 0.00 0.00 - 0.01 K/cumm CHE[facility] Comment:Testing performed by : [address] [address] Blood 05/10/2024 6:21 AM CDT 05/10/2024 7:05 AM CDT Solo Barrett MD LAB BLOOD ORDERABLES Final Re sult Performing Organization Address [facility] Co de Phone Number [address] [address] * TSH (05/10/2024 6:21 AM CDT) Thyroid Stimulating Hormone 2.75 0.30 - 4.20 mcIUnit/mL Comment:Testing performed by : [address] [address] Blood 05/10/2024 6:21 AM CDT 05/10/2024 7:05 AM CDT Solo Barrett MD LAB BLOOD ORDERABLES Final Re sult Performing Organization Address [facility] Co de Phone Number [address] [address] * Comprehensive metabolic panel (05/10/2024 6:21 AM CDT) Sodium 140 135 - 145 mmol/L Comment:Testing performed by : [address] [address] Potassium, pl 3.3 3.3 - 4.9 mmol/L [facility] Comment:Testing performed by : [address] [address] Chloride 100 97 - 110 mmol/L [facility] Comment:Testing performed by : [address] [address] CO2 27 22 - 32 mmol/L [facility] Comment:Testing performed by : [address] [address] Anion gap 13 2 - 15 mmol/L [facility] Comment:Testing performed by : [address] [address] BUN 19 6 - 25 mg/dL [facility] Comment:Testing performed by : [address] [address] Creatinine 0.60 0.60 - 1.10 mg/dL [facility] Comment:Testing performed by : [address] [address] Glucose 95 70 - 199 mg/dL [facility] Comment: Interpretive Data Fasting glucose >/= 126 [...] classification and Diagnosis of Diabetes Diabetes Care 2021; 46: S19-S40. Current interpretive data was last revised 2022. Testing performed by: [address] [address] Calcium 9.8 8.5 - 10.3 mg/dL [facility] Comment:Testing performed by : [address] [address] Bilirubin, total 0.4 0.1 - 1.2 mg/dL [facility] Comment:Testing performed by : [address] [address] Protein, pl 7.3 6.5 - 8.5 g/dL [facility] Comment:Testing performed by : [address] [address] Albumin 4.0 3.5 - 5.0 g/dL [facility] Comment:Testing performed by : [address] [address] Alk phos 101 40 - 130 Units/L [facility] Comment:Testing performed by : [address] [address] ALT 25 7 - 45 Units/L [facility] Comment:Testing performed by : [address] [address] AST 19 10 - 45 Units/L [facility] Comment:Testing performed by : [facility], [address] [place] [address]., [address] Blood 05/10/2024 6:21 AM CDT 05/10/2024 7:05 AM CDT Solo Barrett MD LAB BLOOD ORDERABLES Final Re sult [facility] [address] [facility] [place] [address] * Screening Mammogram Bilateral W Alexis (06/20/2023) Anatomical Region Laterality Modality Breast Bilateral Mammography Historical Provider IMG MAMMO PROCEDURES Junie l Result * Colonoscopy (12/18/2021) Anatomical Region Laterality Modality Other Historical Provider ENDOSCOPY PROCEDURES Junie l Result from Last 3 Months or Most Recently Relevant to Health Maintenance [facility] [employer] H[employer] Care Teams Putty Remover Relationship Specialty Start Date End Date Solo Barrett MD PCP - General Family Medicine 07/27/18 Nancy Lipscomb MD Congregational Care Pastor Interventional Cardiology 09/20/18
--- OUTSIDE RECORDS SUMMARY | 2024-06-29 11:58 | XMS_ITS | Clinical Summary ---
Author Organization [facility] Address [address] [place] [address] Phone Care Team Providers Care Clinical Trial Associate Name Role Phone Solo Barrett MD Primary Care Provider [phone] Family History Medical History Relation Name Comments Breast Cancer Sister age 40's Ovarian Cancer Neg Hx Relation Name Status Comments Sister Social History Tobacco Use Types Packs/Day Years Used Date Smoking Tobacco: Never Assessed Comments Unknown Sex and Gender Information Value Date Recorded Sex Assigned at Not on file Legal Sex Female 5:40 AM TANDEM OPERATOR Gender Identity Not on file Sexual Orientation Not on file Plan of Treatment Health Maintenance Due Date Last Done Comments HEPATITIS B VACCINES (1 of 3 - 19+ 3-dose series) 01/01/1991 HPV/Cotest (21-29) 01/01/1993 CERVICAL CANCER SCREENING 01/01/2002 HPV/Cotest (30-65) 01/01/2002 PAP SMEAR 01/01/2002 BREAST CANCER SCREENING 04/03/2013 04/03/2012, 01/15 COLORECTAL SCREENING 01/01/2017 Colorectal Cancer Screening 01/01/2017 FIT-DNA Q 3 years 01/01/2017 FIT/FOBT Q 1 year 01/01/2017 Flex Sig/CT Colonography Q 5 years 01/01/2017 INFLUENZA VACCINE (#1) 2023 2, 11/23/2020, 10/24/2019 COVID-19 Vaccine ( - 2023- season) 2023, 04/07/2020 DTAP/TDAP/TD VACCINES (2 - T d or Tdap) 05/23/2028 05/23/2018 ZOSTER VACCINE Completed 03/28/2022, 01/15/2022 Procedures Procedure Name Priority Date/Time Associated Diagnosis Comments MAMMO SCREEN BILAT W OR WO CAD Routine 04/03/2012 8:29 AM TANDEM OPERATOR Other screening mammogram from Last 3 Months or Most Recently Relevant to Health Maintenance Results * MAMMO DIGITAL SCREEN BILAT (04/03/2012 8:29 AM TANDEM OPERATOR) Anatomical Region Laterality Modality Breast Bilateral Mammography 04/03/2012 8:28 AM TANDEM OPERATOR Narrative 04/05/2012 8:34 AM TANDEM OPERATOR BILATERAL FULL FIELD DIGITAL SCREENING MAMMOGRAM WITH CAD. DATE OF EXAM: 04/03/12 HISTORY: Routine Screening. TECHNIQUE: Full field digital screening mammography of both breasts were obtained. COMPARISON: January 2008 BREAST PARENCHYMAL COMPOSITION: Scattered fibroglandular densities. FINDINGS: No new dominant masses, suspicious calcifications, parenchymal asymmetry or areas of architectural distortion are identified in either breast. Since the prior study, there has been no significant interval change. The computer aided detection system was utilized. OVERALL ASSESSMENT: BI-RADS category 1: Negative. RECOMMENDATION: Annual mammography is recommended. Procedure Note Aureliano Reed MD - 04/05/2012 BILATERAL FULL FIELD DIGITAL SCREENING MAMMOGRAM WITH CAD. DATE OF EXAM: 04/03/12 HISTORY: Routine Screening. TECHNIQUE: Full field digital screening mammography of both breasts were obtained. COMPARISON: January 2008 BREAST PARENCHYMAL COMPOSITION: Scattered fibroglandular densities. FINDINGS: No new dominant masses, suspicious calcifications, parenchymal asymmetry or areas of architectural distortion are identified in either breast. Since the prior study, there has been no significant interval change. The computer aided detection system was utilized. OVERALL ASSESSMENT: BI-RADS category 1: Negative. RECOMMENDATION: Annual mammography is recommended. us Charisma Villalobos MD MAMMO ORDERABLES Final Re sult from Last 3 Months or Most Recently Relevant to Health Maintenance Care Teams Clinical Trial Associate Relationship Specialty Start Date End Date Solo Barrett MD PCP - General Family Practice 03/17/12
--- OUTSIDE RECORDS SUMMARY | 2024-06-29 11:58 | XMS_ITS | Encounter Summary ---
Author Organization [facility] Facility Care Team Providers Care Geodetic Engineer Name Role Phone Unknown, Notinfile Primary Care Provider Unavail able Curtis Rhodes MD Primary Care Provider [phone] Solo Barrett MD Primary Care Provider [phone] Nancy Lipscomb MD Unavailable [phone] Encounter Details Date Type Department Care Team (Latest Contact Info) Description 07/01/2015 Orders Only [facility] CLINCONV ProviderSaeid MD [address] [place] [id number] Social History Tobacco Use Types Packs/Day Years Used Date Smoking Tobacco: Never Assessed Comments Unknown Sex and Gender Information Value Date Recorded Sex Assigned at Not on file Legal 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 Historical Provider MD Final Res ult documented in this encounter Visit Diagnoses Not on filedocumented in this encounter Additional Health Concerns Infection Onset Date Last Indicated Resolved Time COVID: Suspected 03/01/2023 03/01/2023 03/01/2023 10:28 AM FARMWORKER ANIMAL COVID: Suspected 03/01/2023 03/01/2023 03/01/2023 8:00 PM FARMWORKER ANIMAL RSV, droplet 03/01/2023 03/01/2023 03/08/2023 3:05 AM FARMWORKER ANIMAL COVID: Suspected 06/12/2024 06/12/2024 06/12/2024 10:14 AM CDT documented as of this encounter Care Teams Geodetic Engineer Relationship Specialty Start Date End Date Unknown, Notinfile PCP - General 04/18/17 04/28/17 Curtis Rhodes MD [address] [place] [address] PCP - General 04/29/17 07/26/18 Solo Barrett MD [address] [place] [address] PCP - General Family Medicine 07/27/18 Nancy Lipscomb MD [address] [place] [address] Cream Dumper Interventional Cardiology 09/20/18 documented as of this encounter
== END 2024-06-29 11:56 | disposition home or self-care (01) ==
LOC: CHSIMG 11:56
PROVIDERS: PCP Family Medicine; Visit Provider Nurse Practitioner
DX: Z12.31 Encounter for screening mammogram for malignant neoplasm of breast (principal)
CPT/HCPCS: 77063; 77067